=== PATIENT | female | born 1975 | race African-American/Black ===

== ENCOUNTER 2022-06-28 08:41 | Emergency (ER) | payer SELFPAY | END 2022-06-28 09:35 | disposition home or self-care (01) | LOC: CSHERS 08:41 | DX: S93.401A Sprain of unspecified ligament of right ankle, initial encounter (principal); W22.09XA Striking against other stationary object, initial encounter ==

== ENCOUNTER 2023-02-24 08:57 | Outpatient (CLI) | payer OTHER | END 2023-02-24 08:58 | disposition home or self-care (01) | LOC: CSHMAMMO 08:57 | PROVIDERS: ATTEND Obstetrics & Gynecology | DX: Z12.31 Encounter for screening mammogram for malignant neoplasm of breast (principal); N63.10 Unspecified lump in the right breast, unspecified quadrant | CPT/HCPCS: 77063; 77067 ==